=== PATIENT | female | born 1985 ===

== ENCOUNTER 2022-08-19 14:35 | Inpatient (IN) | payer OTHER ==
[2022-08-19] MEDS ORDERED: Methylergonovine 0.2 MG/1 ML Amp IM PRN (18:13)
[2022-08-19] MEDS ORDERED: Sodium Chloride 0.9% 2.5 ML Syringe FLUSH PRN (18:13)
[2022-08-19] MEDS ORDERED: Terbutaline 1 MG/ML SDV SUBCUT PRN (18:13)
[2022-08-19] MEDS ORDERED: Butorphanol 1 MG/ML SDV IVPUSH PRN (18:13)
[2022-08-19] MEDS ORDERED: Lidocaine 1% 50 ML MDV INJECT PRN (18:13)
[2022-08-19] MEDS ORDERED: Sodium Chloride 0.9% 20 ML SDV IV PRN (18:13)
[2022-08-19] MEDS ORDERED: Tranexamic Acid 1,000 MG in Sodium Chloride 0.9% 100 ML IV PRN (18:13)
[2022-08-19] MEDS ORDERED: Ampicillin 2 GM in Sodium Chloride 0.9% 100 ML IV ONE (18:13)
[2022-08-19] MEDS ORDERED: Water For Irrigation,Sterile 1,000 ML Container IRR PRN (18:13)
[2022-08-19] MEDS ORDERED: Misoprostol 200 MCG Tab PO PRN (18:13)
[2022-08-19] MEDS ORDERED: Misoprostol 25 MCG (1/4 of 100 MCG) Tab VAG PRN ×2 (18:13)
[2022-08-19] MEDS ORDERED: Carboprost Tromethamine 250 MCG/1 ML Amp IM PRN (18:13)
[2022-08-19] MEDS ORDERED: Sodium Chloride 0.9% 10 ML Syringe FLUSH PRN (18:13)
[2022-08-19] MEDS ORDERED: Oxytocin/0.9 % Sodium Chloride 30 UNIT/500 ML BAG IV SCH ×2 (18:15)
[2022-08-19] MEDS: Lactated Ringers 1,000 ML IV SCH (18:45)
[2022-08-19] MEDS: Ampicillin 1 GM in Sodium Chloride 0.9% 50 ML IV SCH (22:46)
[2022-08-20] MEDS: Lactated Ringers 1,000 ML IV SCH (02:00)
[2022-08-20] MEDS: Ampicillin 1 GM in Sodium Chloride 0.9% 50 ML IV SCH ×3 (02:50→10:43)
[2022-08-20] MEDS ORDERED: Dexmedetomidine 200 MCG/2 ML SDV ONE (03:45)
[2022-08-20] MEDS ORDERED: Phenylephrine HCl 0.5 MG/5 ML AMP ONE (03:45)
[2022-08-20] MEDS ORDERED: Ropivacaine/PF 400 MG/200 ML PCA ONE (03:45)
[2022-08-20] MEDS ORDERED: Phenylephrine HCl 0.5 MG/5 ML AMP IVPUSH PRN (03:58)
[2022-08-20] MEDS ORDERED: ePHEDrine 50 MG/ML SDV IVPUSH PRN ×2 (03:58)
[2022-08-20] MEDS ORDERED: Ropivacaine HCl/PF 400 MG in Premix Bag 1 BAG EPIDUR SCH (04:00)
[2022-08-20] MEDS ORDERED: Ampicillin 1 GM Vial ONE (10:38)
[2022-08-20] MEDS ORDERED: Ondansetron 4 MG/2 ML SDV IVPUSH PRN (11:02)
[2022-08-20] MEDS ORDERED: Bisacodyl 10 MG Supp RECTAL PRN (14:35)
[2022-08-20] MEDS ORDERED: oxyCODONE 5 MG Tab PO PRN (14:35)
[2022-08-20] MEDS ORDERED: Ibuprofen 400 MG Tab PO PRN (14:35)
[2022-08-20] MEDS ORDERED: Acetaminophen 500 MG Tab PO PRN (14:35)
[2022-08-20] MEDS ORDERED: Lanolin 100% Cream 7 GM Tube TOP PRN (14:35)
[2022-08-20] MEDS ORDERED: Benzocaine/Menthol 20%-0.5% Spray 78 GM Cannister TOP PRN (14:35)
[2022-08-20] MEDS: Ibuprofen 800 MG Tab PO PRN ×2 (16:31→22:06)
[2022-08-20] MEDS: Witch Hazel Medicated Pads 40/Jar TOP PRN (16:37)
[2022-08-20] MEDS: Acetaminophen 500 MG Tab PO PRN (20:14)
[2022-08-20] MEDS: Docusate Sodium 100 MG Cap PO PRN (22:07)
[2022-08-21] MEDS: Ibuprofen 800 MG Tab PO PRN ×3 (05:54→21:22)
[2022-08-21 06:14] LABS: CARBON DIOXIDE,CO2 20.7 mmol/L (21.0-32.0)
[2022-08-21] MEDS: Acetaminophen 500 MG Tab PO PRN (10:08)
[2022-08-21] MEDS: Witch Hazel Medicated Pads 40/Jar TOP PRN (15:37)
[2022-08-21] MEDS: Docusate Sodium 100 MG Cap PO PRN (21:22)
[2022-08-22] MEDS: Ibuprofen 800 MG Tab PO PRN (03:56)
[2022-08-22] MEDS: Docusate Sodium 100 MG Cap PO PRN (09:17)
[2022-08-22] MEDS: Acetaminophen 500 MG Tab PO PRN ×2 (09:17)
== END 2022-08-22 12:10 | disposition home or self-care (01) | DRG 806 ==
LOC: MW.OB 14:35 → OBSVTOIN 08-20 14:35 → MW.OB 08-20 17:21
PROVIDERS: ADMIT Obstetrics & Gynecology; ATTEND Obstetrics & Gynecology
PROC: 10D07Z6 Extraction of Products of Conception, Vacuum, Via Natural or Artificial Opening (ICD-10-PCS; principal; 2022-08-20)
PROC: 0KQM0ZZ Repair Perineum Muscle, Open Approach (ICD-10-PCS; 2022-08-20)
PROC: 3E033VJ Introduction of Other Hormone into Peripheral Vein, Percutaneous Approach (ICD-10-PCS; 2022-08-20)
DX: O42.02 Full-term premature rupture of membranes, onset of labor within 24 hours of rupture (principal); O44.43 Low lying placenta NOS or without hemorrhage, third trimester; Z37.0 Single live birth; O75.81 Maternal exhaustion complicating labor and delivery; O69.81X0 Labor and delivery complicated by cord around neck, without compression, not applicable or unspecified; O77.0 Labor and delivery complicated by meconium in amniotic fluid; O66.0 Obstructed labor due to shoulder dystocia; O99.824 Streptococcus B carrier state complicating childbirth; O70.1 Second degree perineal laceration during delivery; Z3A.40 40 weeks gestation of pregnancy; Z86.16 Personal history of COVID-19; Z79.82 Long term (current) use of aspirin; Z79.899 Other long term (current) drug therapy
CPT/HCPCS: 01967; 36415; 51702; 59025; 59409; 80048; 82803; 85025; 85027; 86592; 86850; 86900; 86901; A9270-GY; J0290; J2210; J2370; J2405; J2590; J2795; J3490; J7120